=== PATIENT | female | born 1970 | race Two or more races ===

== ENCOUNTER 2017-09-06 06:50 | Day surgery (SDC) | payer MEDICAID ==
[2017-09-06] MEDS ORDERED: NEOSTIGMINE 3 MG/3 ML SYRINGE ×2 (07:00→11:00)
[2017-09-06] MEDS ORDERED: GLYCOPYRROLATE 0.4 MG INJ ×2 (07:00→11:01)
[2017-09-06] MEDS ORDERED: LIDOCAINE 2% (SDV) 5 ML INJ (07:00)
[2017-09-06] MEDS ORDERED: ROCURONIUM 50 MG INJ (07:00)
[2017-09-06 08:12] LABS: ADD MAN DIFF? NO
[2017-09-06 08:15] LABS: BASOPHIL # 0.2 10^3/ul (0.0-0.1); BASOPHILS % 1.9 % (0.0-2.0); EOSINOPHILS # 0.7 10^3/ul (0.0-0.5); EOSINOPHILS % 6.9 % (0.0-7.0); HEMATOCRIT 38.7 % (37.0-47.0); HEMOGLOBIN 12.6 g/dl (12.0-16.0); LYMPHOCYTES # 1.9 10^3/ul (0.8-2.9); LYMPHOCYTES % 20.2 % (15.0-51.0); MEAN CORPUSCULAR HEMOGLOBIN 26.7 pg (29.0-33.0); MEAN CORPUSCULAR HGB CONC 32.6 g/dl (32.0-37.0); MEAN PLATELET VOLUME 10.8 fl (7.4-10.4); MONOCYTE # 0.4 10^3/ul (0.3-0.9); MONOCYTES % 4.6 % (0.0-11.0); NEUTROPHIL # 6.3 10^3/ul (1.6-7.5); NEUTROPHILS % 66.2 % (39.0-77.0); PLATELET COUNT 303 10^3/UL (140-415); RED BLOOD COUNT 4.72 10^6/ul (4.20-5.40); RED CELL DISTRIBUTION WIDTH 14.1 % (11.5-14.5)
[2017-09-06 08:15] LABS: WHITE BLOOD COUNT 9.6 10^3/ul (4.8-10.8)
[2017-09-06 08:33] LABS: ALANINE AMINOTRANSFERASE 28 IU/L (13-69); ALBUMIN 4.5 g/dl (3.3-4.9); ALBUMIN/GLOBULIN RATIO 1.15; ALKALINE PHOSPHATASE 79 IU/L (42-121); ANION GAP 19 (8-16); ASPARTATE AMINO TRANSFERASE 27 IU/L (15-46); BILIRUBIN,INDIRECT 0.2 mg/dl (0-1.1); BILIRUBIN,TOTAL 0.2 mg/dl (0.2-1.3); CARBON DIOXIDE 27 mmol/L (21-31); CHLORIDE 103 mmol/L (97-110); GLUCOSE 111 mg/dl (70-220); TOTAL PROTEIN 8.4 g/dl (6.1-8.1)
[2017-09-06 08:36] LABS: PROTIME 12.2 Sec (11.9-14.9)
[2017-09-06 08:37] LABS: PARTIAL THROMBOPLASTIN TIME 26.5 Sec (25.0-35.0)
[2017-09-06 08:38] LABS: BLOOD UREA NITROGEN 11 mg/dl (7-20); POTASSIUM 3.9 mmol/L (3.5-5.1)
[2017-09-06 08:39] LABS: CALCIUM 9.2 mg/dl (8.4-10.2); CREATININE 0.79 mg/dl (0.44-1.00)
[2017-09-06 08:41] LABS: SODIUM 145 mmol/L (135-144)
[2017-09-06] MEDS ORDERED: PROPOFOL 100 ML (09:14)
[2017-09-06] MEDS ORDERED: ONDANSETRON 4 MG INJ IV (09:30)
[2017-09-06] MEDS ORDERED: EPHEDrine SULFATE 50 MG/5 ML SYG IV (09:30)
[2017-09-06] MEDS ORDERED: MEPERIDINE 25 MG INJ IV (09:30)
[2017-09-06] MEDS ORDERED: DIPHENHYDRAMINE 50 MG INJ IV (09:30)
[2017-09-06] MEDS ORDERED: MIDAZOLAM 1 MG/ML 2 ML INJ IV (09:30)
[2017-09-06] MEDS ORDERED: KETOROLAC 30 MG INJ IV (09:30)
[2017-09-06] MEDS ORDERED: LABETALOL HCL 20MG INJ IV (09:30)
[2017-09-06] MEDS ORDERED: ALBUTEROL 0.083% (NEB) 2.5 MG/3 ML AMP HHN (09:30)
[2017-09-06] MEDS ORDERED: FENTAnyl 50 MCG/ML VIAL IV ×2 (09:30)
[2017-09-06] MEDS ORDERED: OXYCODONE/ACETAMINOPHEN (5/325) TAB PO (09:30)
[2017-09-06] MEDS ORDERED: hydrALAzine 20 MG INJ IV (09:30)
[2017-09-06] MEDS ORDERED: METOCLOPRAMIDE 10 MG INJ IV (09:30)
[2017-09-06] MEDS ORDERED: HYDROmorphONE (0.2 MG/ML) 10ML SYG IV ×3 (09:30)
[2017-09-06] MEDS: ISOSULFAN BLUE 1% 5 ML INJ SC (10:01)
[2017-09-06] MEDS ORDERED: SOD CHLORIDE 0.9% 1,000 ML IV (10:30)
[2017-09-06] MEDS ORDERED: DEXAMETHASONE 4 MG/ML 1 ML INJ (11:00)
[2017-09-06] MEDS ORDERED: CEFAZOLIN 1 GM INJ (11:00)
[2017-09-06] MEDS ORDERED: ONDANSETRON 4 MG INJ (11:00)
[2017-09-06] MEDS: FENTAnyl 50 MCG/ML VIAL IV ×2 (11:19→11:33)
[2017-09-06] MEDS: CEFAZOLIN 2 GM/50 ML (PMX) 50 ML IVPB (11:20)
[2017-09-06] MEDS ORDERED: HYDROCODONE/APAP (7.5/325) TAB PO (11:30)
[2017-09-06] MEDS: OXYCODONE/ACETAMINOPHEN (5/325) TAB PO (13:43)
== END 2017-09-06 13:50 | disposition home or self-care (01) ==
LOC: SDS 06:50
DX: C50.912 Malignant neoplasm of unspecified site of left female breast (principal); E66.9 Obesity, unspecified; Z68.34 Body mass index [BMI] 34.0-34.9, adult
CPT/HCPCS: 19301; 80053; 84703; 85025; 85610; 85730; 88307; 88313; 88331; 88342

== ENCOUNTER 2017-09-16 08:40 | Day surgery (SDC) | payer MEDICAID ==
[~2017-09-16 08:40] MED LIST: CEFAZOLIN 1 GM INJ; CEFAZOLIN 2 GM/50 ML (PMX) 50 ML IVPB; LIDOCAINE 2% (SDV) 5 ML INJ; SOD CHLORIDE 0.9% 1,000 ML IV
[2017-09-16] MEDS ORDERED: PROPOFOL 100 ML (10:23)
[2017-09-16] MEDS ORDERED: ROCURONIUM 50 MG INJ (10:23)
[2017-09-16] MEDS ORDERED: MIDAZOLAM 1 MG/ML 2 ML INJ (10:28)
[2017-09-16] MEDS ORDERED: LABETALOL HCL 20MG INJ IV (10:30)
[2017-09-16] MEDS ORDERED: KETOROLAC 30 MG INJ IV (10:30)
[2017-09-16] MEDS ORDERED: METOCLOPRAMIDE 10 MG INJ IV (10:30)
[2017-09-16] MEDS ORDERED: DIPHENHYDRAMINE 50 MG INJ IV (10:30)
[2017-09-16] MEDS ORDERED: hydrALAzine 20 MG INJ IV (10:30)
[2017-09-16] MEDS ORDERED: HYDROmorphONE (0.2 MG/ML) 10ML SYG IV ×3 (10:30)
[2017-09-16] MEDS ORDERED: ALBUTEROL 0.083% (NEB) 2.5 MG/3 ML AMP HHN (10:30)
[2017-09-16] MEDS ORDERED: ONDANSETRON 4 MG INJ IV (10:30)
[2017-09-16] MEDS ORDERED: MIDAZOLAM 1 MG/ML 2 ML INJ IV (10:30)
[2017-09-16] MEDS ORDERED: EPHEDrine SULFATE 50 MG/5 ML SYG IV (10:30)
[2017-09-16] MEDS ORDERED: OXYCODONE/ACETAMINOPHEN (5/325) TAB PO ×2 (10:30)
[2017-09-16] MEDS ORDERED: MEPERIDINE 25 MG INJ IV (10:30)
[2017-09-16] MEDS ORDERED: FENTAnyl 50 MCG/ML VIAL IV ×2 (10:30)
[2017-09-16] MEDS ORDERED: DEXAMETHASONE 4 MG/ML 1 ML INJ (11:00)
[2017-09-16] MEDS ORDERED: ONDANSETRON 4 MG INJ (11:03)
[2017-09-16 11:27] LABS: ADD MAN DIFF? NO
[2017-09-16 11:29] LABS: WHITE BLOOD COUNT 9.9 10^3/ul (4.8-10.8)
[2017-09-16 11:29] LABS: BASOPHIL # 0.1 10^3/ul (0.0-0.1); BASOPHILS % 1.4 % (0.0-2.0); EOSINOPHILS # 0.5 10^3/ul (0.0-0.5); EOSINOPHILS % 4.8 % (0.0-7.0); HEMATOCRIT 38.9 % (37.0-47.0); HEMOGLOBIN 12.5 g/dl (12.0-16.0); LYMPHOCYTES # 2.1 10^3/ul (0.8-2.9); LYMPHOCYTES % 21.3 % (15.0-51.0); MEAN CORPUSCULAR HEMOGLOBIN 26.4 pg (29.0-33.0); MEAN CORPUSCULAR HGB CONC 32.1 g/dl (32.0-37.0); MEAN CORPUSCULAR VOLUME 82.1 fl (82.0-101.0); MEAN PLATELET VOLUME 11.3 fl (7.4-10.4); MONOCYTE # 0.7 10^3/ul (0.3-0.9); MONOCYTES % 6.7 % (0.0-11.0); NEUTROPHIL # 6.5 10^3/ul (1.6-7.5); NEUTROPHILS % 65.5 % (39.0-77.0); PLATELET COUNT 305 10^3/UL (140-415); RED BLOOD COUNT 4.74 10^6/ul (4.20-5.40); RED CELL DISTRIBUTION WIDTH 13.9 % (11.5-14.5)
[2017-09-16 11:35] LABS: ALANINE AMINOTRANSFERASE 31 IU/L (13-69); ALBUMIN 4.2 g/dl (3.3-4.9); ALBUMIN/GLOBULIN RATIO 1.23; ALKALINE PHOSPHATASE 78 IU/L (42-121); ANION GAP 13 (8-16); ASPARTATE AMINO TRANSFERASE 25 IU/L (15-46); BILIRUBIN,INDIRECT 0.2 mg/dl (0-1.1); BILIRUBIN,TOTAL 0.2 mg/dl (0.2-1.3); CARBON DIOXIDE 29 mmol/L (21-31); CHLORIDE 104 mmol/L (97-110); GLUCOSE 94 mg/dl (70-220); TOTAL PROTEIN 7.6 g/dl (6.1-8.1)
[2017-09-16 11:38] LABS: BLOOD UREA NITROGEN 9 mg/dl (7-20); CREATININE 0.78 mg/dl (0.44-1.00); SODIUM 142 mmol/L (135-144)
[2017-09-16 11:39] LABS: INR 1.03; PROTIME 13.6 Sec (11.9-14.9); PT RATIO 1.1
[2017-09-16 11:40] LABS: PARTIAL THROMBOPLASTIN TIME 28.1 Sec (25.0-35.0)
[2017-09-16] MEDS ORDERED: SUGAMMADEX SODIUM 200 MG/2 ML VIAL IV (11:53)
[2017-09-16] MEDS ORDERED: HYDROCODONE/APAP (7.5/325) TAB PO (12:00)
[2017-09-16] MEDS: FENTAnyl 50 MCG/ML VIAL IV ×2 (12:32→12:38)
[2017-09-16] MEDS: HYDROCODONE/APAP (7.5/325) TAB PO (13:34)
== END 2017-09-16 14:58 | disposition home or self-care (01) ==
LOC: SDS 08:40
DX: N60.32 Fibrosclerosis of left breast (principal); Z85.3 Personal history of malignant neoplasm of breast; E66.9 Obesity, unspecified; Z68.33 Body mass index [BMI] 33.0-33.9, adult
CPT/HCPCS: 19301; 80053; 84703; 85025; 85610; 85730; 88307